=== PATIENT | female | born 2005 | race Caucasian/White ===

== ENCOUNTER 2024-05-25 14:26 | Emergency (ER) | payer SELFPAY ==
[2024-05-25 14:27] VITALS: BP 150/100
--- NOTE | 2024-05-25 15:22 | ED.GENMED ---
History of Present Illness
<Chiara Varela PA-C - Last Filed: 05/25/24 20:20>
General
Chief Complaint: Skin Problem
Source: patient
Exam Limitations: none
Time Seen by Provider: 05/25/24 15:10
Nursing documentation reviewed up to this point in time: agreed with
History of Present Illness
History of Present Illness:
19-year-old female with no past medical history presenting to the emergency department today with concerns of lower buttocks pain for the past few days. Patient notes that this all started 2 months ago when she noticed a bump in the area. Patient
states that this was not painful at the time. Patient states that then recently she started to notice that with sitting and lying down she would get a lot of pain with in the past 3 days. She denies drainage from the area. She denies any fevers
or chills. She had some nausea associated with this but no belly pain. She denies any pain when using the bathroom, denies any diarrhea or constipation. Denies any bleeding from the rectum. Patient has no past medical history, she takes no daily
medications. She have an allergy to doxycycline.
Review of Systems
<Chiara Varela PA-C - Last Filed: 05/25/24 20:20>
Review of Systems
All Other Systems: ROS reviewed and negative except as documented in HPI and ROS
Phy Exam
<Chiara Varela PA-C - Last Filed: 05/25/24 20:20>
Physical Exam
Physical Exam:
General: Patient is well appearing and in no acute distress; non-toxic
Skin: Warm and dry, there is a 2 cm area of erythema and fluctuance to the right upper buttock area with a few drops of pus expressed from the gluteal cleft.
Head: Normocephalic, atraumatic
Eyes: Sclera non-icteric. EOMs intact.
Cardiac: Regular rate
Pulm: Normal respiratory effort
Abdomen: No abdominal tenderness to palpation
Genitourinary: No anal fissures or tears, no perirectal abscess
Neuro: CN II-XII intact, no focal neurologic deficits.
Psychiatric: Appropriate mood and affect.
Course
<Chiara Varela PA-C - Last Filed: 05/25/24 20:20>
Vital Signs
Initial and Last Documented VS:
Initial Vital Signs
Temp Pulse Resp BP Pulse Ox
98.2 F 110 16 150/100 98
05/25/24 14:27 05/25/24 14:27 05/25/24 14:27 05/25/24 14:27 05/25/24 14:27
Last Documented Vital Signs
Temp Pulse Resp BP Pulse Ox
98.2 F 110 16 150/100 98
05/25/24 14:27 05/25/24 14:27 05/25/24 14:27 05/25/24 14:27 05/25/24 14:27
<Kavitha Eller MD - Last Filed: 05/25/24 15:42>
Vital Signs
Initial and Last Documented VS:
Initial Vital Signs
Temp Pulse Resp BP Pulse Ox
98.2 F 110 16 150/100 98
05/25/24 14:27 05/25/24 14:27 05/25/24 14:27 05/25/24 14:27 05/25/24 14:27
Last Documented Vital Signs
Temp Pulse Resp BP Pulse Ox
98.2 F 110 16 150/100 98
05/25/24 14:27 05/25/24 14:27 05/25/24 14:05/25/24 14:27 05/25/24 14:27
Procedures
<Chiara Varela PA-C - Last Filed: 05/25/24 20:20>
Incision/Drainage/Joint Aspiration
Right Buttock:
Anethesia: 1% Lidocaine with Epi
Preparation: cleaned with Betadine
Type of procedure: incise and drain
Nature of site: abscess
Description of abscess: less than 3cm
Loculations broken up: No
How much fluid was obtained?: small amount
Fluid description: cloudy and purulent
Treatment: left open for drainage
<Chiara Varela PA-C - Last Filed: 05/25/24 20:20>
MDM/Problems Addressed
Differential Diagnosis Includes:
ddx include pilonidal cyst, pilonidal abscess, folliculitis, cellulitis, perirectal abscess
MDM/Problems Addressed:
19-year-old female no past medical history on no chronic medications presents emergency department today with concerns of lower back/buttocks pain for the past 3 days. Patient noted a lump to the area for the past month and states that only within
the past few days has it started to become painful. She has no systemic signs or symptoms, no fevers. On physical exam, she does have a 2 cm indurated fluctuant area on the right buttocks with drainage from the gluteal cleft. The area was incised
and drained purulent fluid. It was left open for drainage. Because patient had drainage from another site suggesting deeper tracking, patient was started on Augmentin. Patient was given referral for general surgery. Patient stable for discharge.
Chronic conditions affecting care:
N/A
Acute Exacerbation and/or Progression of Chronic Illness:
n/a
<Chiara Varela PA-C - Last Filed: 05/25/24 20:20>
*Pulse Oximetry
Patient hypoxic: no
*Critical Care Note
Total Time (30-74mins, 75-104mins- exclusive of procedures): Not Applicable
Data Reviewed
Review of Other/Old Records Reveals: Records (No previous ER records) and Discharge Summary (No discharge summary to review)
Source: patient and records
Prescriptions/Medications Considered But Not Given:
n/a
Further Testing Considered But Not Given:
n/a
<Chiara Varela PA-C - Last Filed: 05/25/24 20:20>
Patient Management
Escalation/DeEscalation of care consider admission/obs:
admit not indicated, patient stable for discharge
ED Attending Note
<Chiara Varela PA-C - Last Filed: 05/25/24 20:20>
-
Portions of this chart may have been created with voice recognition software.� Occasional wrong word or��sound alike� substitutions may have occurred due to the inherent limitations of voice recognition software.
<Kavitha Eller MD - Last Filed: 05/25/24 15:42>
ED Attending Note
Patient seen and examined by attending physician: Yes
I performed the substantive portion of visit, reviewed & personally made and approve the management plan that is documented in note by myself or TIMOTHY.: Yes
ED Attending Note:
19 yr old with swelling in gluteal cleft area for weeks, now with one week of progressive pain. On exam, there is a pintpoint midline lower gluteal cleft area whereby 1-2 drops of pus can be expressed, assoc with small area of
redness/warmth/ttp/fluctuance to the R, no streaking, no blistering, etc. Dx pilonidal abscess. Tx i and D, abx, surg f/u.
Discharge Plan
Departure
Patient Disposition: Home (Routine Discharge)
Date of Disposition: 05/25/24
Time of Disposition: 15:55
Patient with high blood pressure during this ER visit?: Yes
Condition: Good
Discharge Problem:
Pilonidal abscess
Instructions: Skin Abscess, Wound Care (DC), Pilonidal Disease
Prescriptions:
New
amoxicillin-pot clavulanate 875-125 mg tablet
1 tab PO BID 5 Days Qty: 10 0RF
Referrals:
Marvin Alvarado MD [Active] - Call in 1-3 days for appt
Activity Restrictions/Additional Instructions:
Please return to the emergency department should you experience an acute worsening of your pain, fevers or chills, vomiting, abdominal pain, chest pain, shortness of breath, or any other signs or symptoms concerning to you.
Please call the attached number for Dr. Alvarado's office (general surgery) to schedule an appointment. Please say you were evaluated in the emergency department.
You can take Tylenol and Motrin for pain control. The abscess will continue to drain. Warm compress can help encourage drainage. Please change dressing once daily.
Interventions
Interventions:
*Risk Screen - Suicide Last Done: 05/25/24 14:27
*General Assessment Last Done: 05/25/24 16:15
*Neglect/Abuse Screening Last Done: 05/25/24 14:27
ED- Fall Risk Assessment Last Done: 05/25/24 16:16
*ED COVID-19 Vaccine History Last Done: 05/25/24 16:15
*Nursing Disposition Last Done: 05/25/24 16:16
ED-Skin Assessment Last Done: 05/25/24 16:16
Discharge Date and Time
Discharge Date/Time: 05/25/24 16:18
Print Language: TURKISH
== END 2024-05-25 16:18 | disposition home or self-care (01) ==
LOC: EMR 14:26
PROVIDERS: EMERGENCY PHYSICIAN Emergency Medicine
DX: L05.01 Pilonidal cyst with abscess (principal)
CPT/HCPCS: 10080; 99282